=== PATIENT | male | born 1980 | race Two or more races ===

== ENCOUNTER 2017-08-09 09:18 | Emergency (ER) | payer SELFPAY ==
[~2017-08-09] VITALS: Ht 170.2 cm; Wt 97.5 kg
[2017-08-09 10:47] LABS: HEMATOCRIT 44.1 % (39.2-51.8); HEMOGLOBIN 15.1 g/dL (13.7-18.0)
[2017-08-09 10:59] LABS: ASPARTATE AMINO TRANSFERASE 19 U/L (15-37); BLOOD UREA NITROGEN 15 mg/dL (7-18)
[2017-08-09 11:04] LABS: IS PT STATUS REG ER OR PRE ER? YES
[2017-08-09 11:47] VITALS: BP 125/77
== END 2017-08-09 11:49 | disposition home or self-care (01) ==
LOC: ED 11:40
DX: R07.89 Other chest pain (principal)
CPT/HCPCS: 36415; 71010; 80053; 83690; 84436; 84443; 84484; 85025; 93005; 99285

== ENCOUNTER 2020-11-27 01:10 | Emergency (ER) | payer OTHER ==
[~2020-11-27] VITALS: Ht 170.2 cm; Wt 91.0 kg
[2020-11-27] MEDS ORDERED: LORazepam 1MG TABLET PO ONE (01:30)
[2020-11-27 01:56] LABS: BASOPHILS % (AUTO) 1 % (0-1); EOSINOPHILS % (AUTO) 2 % (1-7); LYMPHOCYTES % (AUTO) 15 % (22-44); MEAN CORPUSCULAR HEMOGLOBIN 32.2 pg (27.5-34.5); MEAN CORPUSCULAR HGB CONC 34.3 g/dL (33.2-36.2); MEAN PLATELET VOLUME 7.8 fL (7.4-10.4); MONOCYTES % (AUTO) 5 % (2-9); NEUTROPHILS % (AUTO) 78 % (42-75); PLATELET COUNT 263 x10^3/uL (130-400); RED BLOOD COUNT 4.44 x10^6/uL (4.38-5.82); RED CELL DISTRIBUTION WIDTH 12.8 % (9.4-14.8)
[2020-11-27 01:57] LABS: MD NO
[2020-11-27 02:04] LABS: ALBUMIN 3.9 g/dL (3.4-5.0); ANION GAP 4 mmol/L (5-15); CALCIUM 9.1 mg/dL (8.5-10.1); CHLORIDE 108 mmol/L (98-107); CREATININE 1.14 mg/dL (0.7-1.3)
[2020-11-27] MEDS ORDERED: LORazepam 1MG TABLET ONE (02:04)
--- NOTE | 2020-11-27 02:07 | NUR ---
PATIENT RESTING QUIETLY ON STRETCHER WITH EYES CLOSED, WAKES EASILY, CALL CARTER WITHIN REACH, NAD, VSS WILL CONTINUE TO MONITOR
[2020-11-27 03:29] VITALS: BP 116/68
== END 2020-11-27 03:31 | disposition home or self-care (01) ==
LOC: ED 03:20
DX: F41.1 Generalized anxiety disorder (principal); F12.129 Cannabis abuse with intoxication, unspecified; R06.02 Shortness of breath; R94.31 Abnormal electrocardiogram [ECG] [EKG]
CPT/HCPCS: 36415; 71045; 80048; 82040; 85025; 93005; 99285

== ENCOUNTER 2021-03-29 15:35 | Emergency (ER) | payer OTHER ==
[~2021-03-29] VITALS: Ht 170.2 cm; Wt 86.0 kg
--- NOTE | 2021-03-29 15:58 | NUR ---
PT BIB AND SON VIA POV. PER PT HALLUCINATIONS X1 WEEK AND CP/ SHAKINESS THAT STARTED TODAY AROUND 1300. PT STATES CP IS AT ABOUT 3/10 ON PAIN SCALE BUT RADIATES TO LEFT NECK AND BACK. PT ALSO STATES FEELING WEAK. PT STATES THIS HAPPENED IN NOVEMBER AND HE THOUGHT IT WAS DUE TO A NEW TYPE OF MARIJUANA HE WAS SMOKING. PT STATES HE HAS NOT SMOKED MARIJUANA IN OVER A MONTH. PT RESTING IN [facility], MONTIORING IN PLACE, FAMILY AT BEDSIDE, NADN AT THIS TIME, PER PT NO NEEDS, WCTM.
[2021-03-29 16:50] LABS: BASOPHILS % (AUTO) 1 % (0-1); EOSINOPHILS % (AUTO) 1 % (1-7); HCT (SEDRATE) 43.2 % (39.2-51.8); LYMPHOCYTES % (AUTO) 24 % (22-44); MEAN CORPUSCULAR HEMOGLOBIN 32.3 pg (27.5-34.5); MEAN CORPUSCULAR HGB CONC 34.3 g/dL (33.2-36.2); MEAN PLATELET VOLUME 7.6 fL (7.4-10.4); MONOCYTES % (AUTO) 6 % (2-9); NEUTROPHILS % (AUTO) 68 % (42-75); PLATELET COUNT 317 x10^3/uL (130-400); RED BLOOD COUNT 4.59 x10^6/uL (4.38-5.82); RED CELL DISTRIBUTION WIDTH 13.2 % (9.4-14.8)
[2021-03-29 16:50] LABS: MICROSCOPIC NOT IND
[2021-03-29 16:53] LABS: MD NO
[2021-03-29 16:55] LABS: ALBUMIN 4.5 g/dL (3.4-5.0); ANION GAP 9 mmol/L (5-15); CALCIUM 9.2 mg/dL (8.5-10.1); CHLORIDE 108 mmol/L (98-107)
[2021-03-29 16:58] LABS: ALANINE AMINOTRANSFERASE 38 U/L (12-78); ALKALINE PHOSPHATASE 78 U/L (45-117); BILIRUBIN,TOTAL 0.9 mg/dL (0.2-1.0); C-REACTIVE PROTEIN, QUANT 0.07 mg/dL (0.02-0.49); CREATININE 1.33 mg/dL (0.7-1.3); TOTAL PROTEIN 8.1 g/dL (6.4-8.2)
[2021-03-29 17:01] LABS: AMPHETAMINE SCREEN, URINE Negative (Negative); BARBITURATE SCREEN, URINE Negative (Negative); BENZODIAZEPINE SCREEN, URINE Negative (Negative); CANNABINOID SCREEN, URINE Positive (Negative); COCAINE SCREEN, URINE Negative (Negative); METHADONE SCREEN, URINE Negative (Negative); OPIATE SCREEN, URINE Negative (Negative)
--- NOTE | 2021-03-29 17:22 | NUR ---
REPORT GIVEN TO ALONDRA CHU.
--- NOTE | 2021-03-29 17:27 | NUR ---
RECEIVED REPORT FROM BHARAT. PT CONNECTED TO MONITOR VSS. NADN. SIDE BAR UP, CALL LIGHT WITHIN REACH. PT MEDICATED PER EMAR. CHRISTOS. SITTER AT BEDSIDE. PT EXPLAINS THAT HE HAS BEEN FEELING OFF FOR PAST WEEK. HE REPORTS WATCHING A [employer] VIDEO AND FEELS THAT PERSON IS TALKING TO HIM DIRECTLY, BUT FAMILY SAYS THEY HAVE SEEN IT WELL, BUT IS NOT WHAT THE PT REPORTS HE WATCHED.
[2021-03-29] MEDS ORDERED: OLANZAPINE ODT 10MG PO ONE (17:30)
[2021-03-29 17:48] LABS: TROPONIN I < 0.015 ng/mL (0.000-0.045)
--- NOTE | 2021-03-29 18:02 | NUR ---
DINNER TRAY PROVIDED TO PT. PT ON HOSPITAL BED, FAMILY AT BEDSIDE. PER DR. MENDOZA PT MEDICALLY CLEARED AT THIS TIME. PT REMOVED FROM MONITORING. GARAGE DOORS DOWN X2. SITTER OUTSIDE ROOM FOR SAFETY.
--- NOTE | 2021-03-29 18:40 | NUR ---
PT SITTING IN HOSPITAL BED, FAMILY BEDSIDE. CHRISTOS. SITTER OUTSIDE PT ROOM FOR SAFETY.
--- NOTE | 2021-03-29 18:43 | NUR ---
BEDSIDE REPORT FROM VLAD CANTU, PT CARE TRANSFERRED AT THIS TIME.
--- NOTE | 2021-03-29 18:58 | NUR ---
SBAR REPORT GIVEN TO VIN. NO CHANGE IN PT, IN HOSPITAL BED WITH FAMILY AT BEDSIDE. CHRISTOS.
--- NOTE | 2021-03-29 19:11 | NUR ---
PT RESTING ON HOSPITAL BED, NAD, SON AND AT BS. PT APPEARS COMFORTABLE, SITTER IN LINE OF SIGHT, ROOM SECURED, PT DENIES SI/HI BUT REPORTS HALLUCINATIONS OF FEELING THOUGH VIDEOS ARE TALKING DIRECTLY TO HIM. VSS. CONSTANTINO.
--- NOTE | 2021-03-29 20:52 | NUR ---
pt resting on hospital bed, nad, appears comfortable, watching tv with family at bs. room secured, sitter in line of sight, wctm. L2K
[2021-03-29 20:55] LABS: SALICYLATE LEVEL < 1.7 mg/dL (2.8-20.0)
--- NOTE | 2021-03-29 21:47 | NUR ---
PT RESTING ON HOSPITAL BED, NAD, FAMILY AT BS TALKING. PT DENIED ADDITIONAL NEEDS AT THIS TIME. APPEARS COMFORTABLE. WCTM. ROOM SECURED, SITTER IN LINE OF SIGHT.
--- NOTE | 2021-03-29 22:46 | NUR ---
PT RESTING ON HOSPITAL BED, NAD, EYES CLOSED, EVEN AND UNLABORED RESPIRATIONS. APPEARS COMFORTABLE. WCTM. ROOM SECURED, SITTER IN LINE OF SIGHT.
--- NOTE | 2021-03-30 01:07 | NUR ---
relief rn: pt sleeping on hospital bed, rr even non labored. sitter outside of room. will ctm.
--- NOTE | 2021-03-30 02:21 | NUR ---
PT RESTING ON HOSPITAL BED, NAD, APPEARS COMFORTABLE, EYES CLOSED, EVEN AND UNLABORED RESPIRATIONS NOTED, ROOM SECURED, SITTER IN LINE OF SIGHT. WCTM. L2K
--- NOTE | 2021-03-30 03:40 | NUR ---
Patient has to pay banuelos upfront if he wants to go to [facility].
--- NOTE | 2021-03-30 04:30 | NUR ---
Task RN: Spoke with [facility] who denied placement for patient.
--- NOTE | 2021-03-30 04:31 | NUR ---
Denied by [facility] unless he can pay banuelos.
--- NOTE | 2021-03-30 04:43 | NUR ---
RECEIVED REPORT FROM ALONDRA BANUELOS TO ASSUME CARE OF PT. AT THIS TIME. PT. RESTING ON BED WITH EYES CLOSED. RESPIRATIONS VISIBLE AND NON-LABORED. ROOM SECURED. SITTER IN LINE OF SIGHT.
--- NOTE | 2021-03-30 04:46 | NUR ---
bedside report to [facility], pt care transferred at this time. pt belongings 11/26 bags with shoes and shirt placed in locker. pt has phone to contact family. pt nad, appears comfortable, room secured, sitter in line of sight.
--- NOTE | 2021-03-30 07:00 | NUR ---
REPORT FROM ALONDRA COPELAND. PT LAYING ON HOSPITAL BED. PT STILL HAD BELONGINGS, PT AGREEABLE TO PLACE ALL PERSONAL BELONGINGS IN PT BAG, THEN PLACED IN LOCKED LOCKER. NADN, COOPERATIVE AND APPROPRIATE WITH STAFF. PT IN SAFE ENVIRONMENT WITH ROOM SECURED, SITTER IN VIEW.
--- NOTE | 2021-03-30 07:05 | NUR ---
BS REPORT TO ALONDRA MENDOZA AND ALONDRA QUICK TO ASSUME CARE OF PT.
--- NOTE | 2021-03-30 08:00 | NUR ---
VICENTE FROM [facility] CALLED, STILL AWARE OF PATIENT, PENDING BED OPENING, WILL CALL BACK WHEN ABLE TO TAKE PATIENT.
[2021-03-30 08:25] VITALS: BP 132/80
--- NOTE | 2021-03-30 08:31 | NUR ---
PT LAYING ON GURNEY WATCHING TV. PT CALM AND COOPERATIVE, APPROPRIATE TOWARDS. PT DENIES SI AT THIS TIME AND STATES HE IS "FEELING BETTER." VSS/NADN. MEAL TRAY PROVIDED. PT IN SAFE ENVIRONMENT, SITTER IN VIEW.
--- NOTE | 2021-03-30 09:42 | NUR ---
PT SITTING ON GURNEY, WATCHING TV. VISITOR AT . COMFORT MEASURES PROVIDED. ROOM SECURED, PT IN SAFE ENVIRONMENT. SITTER IN VIEW.
--- NOTE | 2021-03-30 10:31 | NUR ---
PT RESTING ON [facility]. ROOM SECURED, PT IN SAFE ENVIRONMENT. SITTER IN VIEW.
--- NOTE | 2021-03-30 11:19 | NUR ---
QA AUTOMATION DEVELOPER AT BS
--- NOTE | 2021-03-30 12:24 | NUR ---
Patient given discharge instructions and RX, they have confirmed that they understand the instructions. Patient ambulatory with steady gait. PT ALSO GIVEN REFERRALS & MEAL TRAY.
== END 2021-03-30 12:31 | disposition home or self-care (01) ==
LOC: ED 20:00
DX: F23 Brief psychotic disorder (principal); I10 Essential (primary) hypertension; R00.0 Tachycardia, unspecified; R07.89 Other chest pain; M54.2 Cervicalgia
CPT/HCPCS: 36415; 80053; 80299; 80307; 80320; 80329; 81003; 84443; 84484; 85025; 85651; 86140; 93005; 99285; G0480

== ENCOUNTER 2021-07-15 18:22 | Emergency (ER) | payer OTHER ==
[~2021-07-15] VITALS: Ht 170.2 cm; Wt 94.3 kg
[2021-07-15 18:26] VITALS: BP 164/80
--- NOTE | 2021-07-15 19:30 | NUR ---
PATIENT DECIDED TO LEAVE WITHOUT MEDICAL ADVICE. SIGNED AMA FORM.
== END 2021-07-15 19:19 | disposition left against medical advice (07) ==
LOC: ED 19:12
DX: R42 Dizziness and giddiness (principal); Z53.21 Procedure and treatment not carried out due to patient leaving prior to being seen by health care provider
CPT/HCPCS: 93005